=== PATIENT | female | born 1960 | race Caucasian/White ===

== ENCOUNTER 2024-09-26 09:46 | Emergency (ER) | payer MEDICARE, OTHER ==
[2024-09-26] MEDS: predniSONE 20 MG Tab PO ONE (11:09)
== END 2024-09-26 11:21 | disposition home or self-care (01) ==
LOC: FB.ED 09:46
DX: J45.901 Unspecified asthma with (acute) exacerbation (principal); Z88.2 Allergy status to sulfonamides; Z88.8 Allergy status to other drugs, medicaments and biological substances
CPT/HCPCS: 99283; J7512